=== PATIENT | male | born 1985 | race Caucasian/White ===

== ENCOUNTER 2021-11-19 10:23 | Emergency (ER) | payer OTHER, SELFPAY ==
--- NOTE | ~2021-11-19 | XR_ITS ---
[id number] DATE: 11/19/2021 11:07 INDICATION: Slipped on ice on 11/18/2021. Right anterolateral chest pain TECHNIQUE: PA chest. 3 views of the right ribs. COMPARISON: None FINDINGS: No displaced right rib fracture is evident. Subtle nondisplaced lateral right fifth rib fra cture with minimal associated soft tissue swelling is suggested. Normal heart size. No hilar or mediastinal enlargement. No pulmonary infiltrate or consolidation, ple ural effusion or pulmonary vascular congestion or pneumothorax. IMPRESSION: Subtle lateral nondisplaced right fifth rib fracture is suggested. No active cardiac pulmonary disease, pneumothorax or pleural effusion Reviewed, dictated and finalized at [facility]. Reviewed, dictated and finalized at [facility]. [facility]
[2021-11-19 10:34] VITALS: BP 138/84; PULSE 74; RESP 14; TEMP 36.8; O2SAT 99
--- NOTE | 2021-11-19 11:02 | ED.FALL ---
HPI - Fall General Chief Complaint: Fall Stated Complaint: Fall/ Rib/Neck pain Time Seen by Provider: 11/19/21 10:46 Source: patient and RN notes reviewed Mode of arrival: ambulatory Limitations: no limitations History of Present Illness HPI Narrative: Patient presents today complaining of right anterior rib pain. He slipped and fell on some ice yesterday falling forward with his arm underneath him. He is also complaining of some left-sided neck pain. Denies any head strike or loss of consciousness. Currently rates his pain 8/10 with movement, deep breath, or cough. He has been taking ibuprofen and applying ice without relief. 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 Patient smokes 1 pack/day for 20 years. MD complaint: fall Related Data Home Medications Medication Instructions Recorded Confirmed albuterol 90 mcg INHALATION Q4H PRN 11/19/21 11/19/21 citalopram 20 mg PO DAILY 11/19/21 11/19/21 cyclobenzaprine 10 mg PO TID PRN 11/19/21 11/19/21 Allergies Allergy/AdvReac Type Severity Reaction Status Date / Time No Known Allergies Allergy Verified 11/19/21 10:42 Review of Systems Review of Systems: CONSTITUTIONAL: Denies body aches, fever, chills, or sweats. EYES: Denies visual changes, redness, or discharge. ENT: Denies rhinorrhea, congestion, sore throat, or otalgia. CARDIOVASCULAR: Denies chest pain, palpitations, or edema. RESPIRATORY: Denies cough or dyspnea. GASTROINTESTINAL: Denies abdominal pain, nausea, vomiting, or diarrhea. GENITOURINARY: Denies dysuria or hematuria. SKIN: Denies rash, itching, or wounds. MUSCULOSKELETAL: Denies joint pain, or myalgia.+ Neck pain, right anterior rib pain NEUROLOGIC: Denies headache, numbness, tingling, or weakness. PSYCH: Denies depression or anxiety. [facility] Social History Social History (Updated 11/19/21 @ 11:04 by Akosua Snyder, [facility], ) Smoking packs per day: 1 Smoking cigarettes per day: 20.0 Years smoked: 20 Smoking pack-years: 20.00 Smoking status: Current every day smoker Tobacco type: cigarettes Exam Narrative: GENERAL: Well-appearing, well-nourished, and in no acute distress. HEAD: Normocephalic, atraumatic. EYES: EOMI. No redness or drainage. Conjunctivae normal. ENT: Mucous membranes pink and moist. NECK: Normal AROM. Muscular tenderness to the left neck. No spinal tenderness. CHEST: No respiratory distress. Clear to auscultation. Right anterior mid to lower rib tenderness. No crepitus. No ecchymosis or edema noted. HEART: Regular rate and rhythm. No murmur appreciated. Normal peripheral pulses. EXTREMITIES: Normal range of motion. No edema. SKIN: Warm, dry, no rash. Capillary refill normal. Normal skin turgor. NEURO: No focal deficits. Alert and oriented x3. Gait steady. PSYCH: Normal affect. No signs of depression or anxiety. Course Course Level of Care: Express Care Visit Vital Signs Vital signs: Vital Signs Temperature 98.2 F 11/19/21 10:34 Pulse Rate 74 11/19/21 10:34 Respiratory Rate 14 11/19/21 10:34 Blood Pressure 138/84 11/19/21 10:34 Pulse Oximetry 99 11/19/21 10:34 Temperature 98.2 F 11/19/21 10:34 Pulse Rate 74 11/19/21 10:34 Respiratory Rate 14 11/19/21 10:34 Blood Pressure 138/84 11/19/21 10:34 Pulse Oximetry 99 11/19/21 10:34 Reviewed. Pt has been instructed to follow up with his PCP regarding his elevated blood pressure today. MDM - Fall Differential Diagnosis Differential diagnosis: Likely other (Rib fracture, rib contusion, neck strain) Imaging Data Radiologist's impression: ITS Impressions Ribs w/Chest X-Ray 11/19/21 11:16 IMPRESSION: Subtle lateral nondisplaced right fifth rib fracture is suggested. No active cardiac pulmonary disease, pneumothorax or pleural effusion Critical Care Time Critical Care Time Critical Care Time: No Discharge Plan Discharge Clinical Impression: Right rib fractu
== END 2021-11-19 11:42 | disposition home or self-care (01) ==
PROVIDERS: Emergency Provider Nurse Practitioner; PCP Internal Medicine
DX: S22.31XA Fracture of one rib, right side, initial encounter for closed fracture (principal); S16.1XXA Strain of muscle, fascia and tendon at neck level, initial encounter; W00.0XXA Fall on same level due to ice and snow, initial encounter; F17.210 Nicotine dependence, cigarettes, uncomplicated
CPT/HCPCS: 71101; 99213; G0463